=== PATIENT | female | born 1975 | race Two or more races ===

== ENCOUNTER → 2024-08-15 | Outpatient (CLI) | payer MEDICAID, SELFPAY ==
--- NOTE | 2024-08-15 16:00 | XR_ITS ---
Examination: Breast ultrasound complete, bilateral Date and time of exam: August 15, 2024 1610 hrs. Indications: Left breast cancer with lumpectomy 2002, left breast sonogram January 22, 2024 scar formation 12:00 position left breast 6 x 2 x 5 mm Technique: Real-time grayscale ultrasonographic imaging bilateral breasts, including all 4 quadrants as well as nipple retroareolar and axillary regions. Findings: Sonographic images right breast 11:00 cyst 4 x 4 millimeter 8:00 cyst 6 x 6 mm No solid nodules Sonographic images left breast 12:00 scar reformation 12 x 8 mm 11:00 probable scar formation 15 x 11 mm Impression: BI-RADS Category 3: Probably benign findings This patient should return in 3 months for repeat left breast sonography with the radiologist in attendance to document stability of these scar formation at 2 sites in the left breast
== END | disposition home or self-care (01) ==
LOC: CDIM 15:34
PROVIDERS: PCP Registered Nurse Community Health; Referring Provider Registered Nurse Community Health; Visit Provider Registered Nurse Community Health
DX: N60.01 Solitary cyst of right breast (principal); R92.8 Other abnormal and inconclusive findings on diagnostic imaging of breast
CPT/HCPCS: 76641

== ENCOUNTER → 2024-08-22 | Outpatient (CLI) | payer MEDICAID, SELFPAY ==
--- NOTE | 2024-08-22 15:12 | XR_ITS ---
Examination: Lumbar spine, 5 views Technique: Lumbar spine AP, lateral, coned lateral lower lumbar spine, bilateral obliques 5 views Exam date and time: August 22, 2024 1535 hours INDICATIONS: Low back pain beginning 2 months ago. FINDINGS: Moderate osteopenia Diffuse moderate facet arthropathy No lumbar fracture Mild disc narrowing at the lower 3 lumbar levels IMPRESSION: No lumbar fracture Mild disc narrowing at the lower 3 lumbar levels
== END | disposition home or self-care (01) ==
PROVIDERS: PCP Registered Nurse Community Health; Referring Provider Registered Nurse Community Health; Visit Provider Registered Nurse Community Health
DX: M48.061 Spinal stenosis, lumbar region without neurogenic claudication (principal)
CPT/HCPCS: 72110

== ENCOUNTER 2024-09-04 22:40 | Emergency (ER) | payer MEDICAID, SELFPAY ==
[2024-09-04 22:44] VITALS: BMI 23.1
[2024-09-04 22:45] VITALS: BP 136/88; PULSE 91; PULSE 95; RESP 15; RESP 19; TEMP 36.4; O2SAT 100; O2SAT 99; BMI 25.9
--- NOTE | 2024-09-04 22:46 | PD.EDAMS ---
Altered Mental Status RME/HPI General Chief Complaint: Altered Mental Status Stated Complaint: ALTERED Time Seen by Provider: 09/04/24 22:44 Source: EMS Arrival date/time: 09/04/24 22:40 Mode of arrival: EMS Limitations: altered mental status RME / HPI RME / HPI narrative: Dr. Farias?s Main ED Evaluation: A 49-year-old female was brought to the emergency department via ambulance for decreased responsiveness. According to EMS, the patient?s family reported that she had an argument with her , who then left the home. Upon his return, he found the patient to be less responsive. EMS noted that the patient was not speaking at the time of their arrival. No other associated symptoms or medical complaints were reported by EMS. 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 The patient underwent neurosurgery in [place], with the tumor reportedly being benign. She also has a history of chronic seizures managed with Keppra and a past appendectomy. Related Data Home Medications ?Medication ?Instructions ?Recorded ?Confirmed lamotrigine 150 mg tablet 150 mg PO BID 06/14/21 08/22/22 levetiracetam 1,000 mg tablet 1,000 mg PO BID 06/14/21 08/22/22 (Keppra) tamoxifen 20 mg tablet 20 mg PO DAILY 06/14/21 08/22/22 cholecalciferol (vitamin D3) 50 50 mcg PO QDAY 08/21/22 08/22/22 mcg (2,000 unit) capsule Allergies Allergy/AdvReac Type Severity Reaction Status Date / Time codeine Allergy Mild Palpitation Verified 08/22/22 08:18 s hydrocodone Allergy Mild Palpitation Verified 08/22/22 08:18 s Review of Systems Review of Systems ROS Unobtainable: unobtainable due to mental status ED Exam Narrative Physical exam: GENERAL APPEARANCE: AxO to person, not answering my questionnaire, generally well-appearing, no acute distress. HEENT: NC, AT. MMM. EOMI, clear conjunctiva, oropharynx clear. NECK: Supple without lymphadenopathy. No stiffness or restricted ROM. HEART: Normal rate and regular rhythm, normal S1/S1, no m/r/g LUNGS: CTAB, moving air well. No crackles or wheezes are heard. ABDOMEN: Soft, nontender, nondistended with good bowel sounds heard. BACK: No midline C/T/L spine pain or deformity, No CVAT, no obvious deformity. EXTREMITIES: Without cyanosis, clubbing or edema. MUSCULOSKELETAL: FROM of all major joints, no chest tenderness NEUROLOGICAL: Grossly nonfocal. Alert and oriented, moving all 4 extremities. CN not formally tested but appear grossly intact. Observed to ambulate with normal gait. Skin: Warm and dry without any rash. General Limitations: Present altered mental status Course Quality Measures none Orders Category Date Time Status Diazepam [Valium] Med 09/04/24 23:00 Discontinued 5 mg PO X1 ONE LORazepam [Ativan Inj] Med 09/04/24 22:45 Discontinued 2 mg IM X1 ONE Reevaluation(s) Reevaluation #1: Patient re-evaluated. She is alert, oriented x4, speaking in full sentences, GCS 15, back to baseline. Vitals WNL. Stable. No pain overall. Time: 23:15 Vital Signs Vital signs: Vital Signs Temperature 97.6 F 09/04/24 22:45 Pulse Rate 95 09/04/24 22:45 Respiratory Rate 19 09/04/24 22:45 Blood Pressure 136/88 H 09/04/24 22:45 Pulse Oximetry (%) 100 09/04/24 22:45 Oxygen Delivery Method Room Air 09/04/24 22:45 Altered Mental Status MDM Narrative MDM Narrative:: Scribe Attestation: I, Bre Almanza, am scribing for and in the presence of Dr. Farias. Provider Notation: Although this document has been carefully reviewed, there may still be some phonetic and other typographical errors. These errors are purely grammatical due to imperfections in the software program and should not be construed in any way to compromise the substance of the patient's medical care during this visit. Patient data External records reviewed:: [facility] previous records and EMS form Clinical information provided by:: EMS Social determinants that could affect healthcare access:: none Patient has the following chronic illnesses:: See PMH How is presenting disease/condition affected by chronic disease/condition?: uneffected by Evaluation data The following diagnostics were reviewed and interpreted by me:: other (specify) (n/a) Lab and/or radiology exams considered but not ordered:: n/a Interpretation Summary: See narrative Medications / Prescriptions Medications or Prescriptions considered but not ordered:: n/a Medication administrations:: Medication Administration History Discontinued Medications Diazepam (Diazepam 5 Mg Tablet) 5 mg PO X1 ONE Stop: 09/04/24 23:01 Last Admin: 09/04/24 23:19 Dose: 5 mg Documented By: FLO Lorazepam (Lorazepam 2 Mg/Ml Vial) 2 mg IM X1 ONE Stop: 09/04/24 22:46 Last Admin: 09/04/24 23:05 Dose: Not Given Documented By: AC Non-Admin Reason: Cancelled by Provider as above Consultations Consultation(s) initiated? (list below): No Diagnosis Differential diagnosis altered mental status: other ( Conversion disorder, panic disorder, anxiety, postictal seizure) Most likely diagnosis given after review of the tests above:: Patient has no emergent abnormalities in their studies and can be managed on an outpatient basis. Admission Indicated Admission indicated?: not indicated Admission Request Was there a request for admission?: No Disposition Plan Disposition Plan: Discharge Discharge Attestation Discharge Attestation: The patient and all family members were given an opportunity to ask questions and understood the discharge instructions. Discharge instructions specifically effects, indications for sooner follow up or return to the emergency department, and the expected course of current diagnosis. Patient condition: Stable Discharge Plan Plan Patient Disposition: HOME (Self Care) Prescriptions/Referrals Prescriptions/Med Rec: No Action lamotrigine 150 mg tablet 150 mg PO BID tamoxifen 20 mg tablet 20 mg PO DAILY levetiracetam [Keppra] 1,000 mg Tablet 1,000 mg PO BID cholecalciferol (vitamin D3) 50 mcg (2,000 unit) capsule 50 mcg PO QDAY Patient Comments: TAKE 1 CAPSULE BY MOUTH EVERY DAY Problem List Clinical Impression: Panic Patient/Caregiver Discharge Instructions Education Materials: ED Panic Attack Additional Instructions: Follow-up with your primary care doctor as needed. Feel free return to the emergency department sooner if symptoms worsen or if you notice any new, concerning issues. Print Language: Lithuanian Stand Alone Forms: [employer] Award Info., Patient Portal Info Letter
[2024-09-04 23:14] VITALS: BP 136/82; PULSE 87; RESP 19; O2SAT 98
[2024-09-04] MEDS: DIAZEPAM 5 MG TABLET PO (23:19)
== END 2024-09-04 23:40 | disposition home or self-care (01) ==
LOC: SERX 23:30
PROVIDERS: Emergency Provider Emergency Medicine; PCP Registered Nurse Community Health
DX: F41.0 Panic disorder [episodic paroxysmal anxiety] (principal)
CPT/HCPCS: 99282; A9270

== ENCOUNTER → 2024-09-07 | Outpatient (CLI) | payer MEDICAID, SELFPAY ==
--- NOTE | 2024-09-07 13:00 | XR_ITS ---
Examination: MRI brain without intravenous contrast. Date and time of exam: September 07, 2024 at 1326 hours Comparison October 22, 2017 INDICATIONS: History right frontal parafalcine enhancing tumor 6.6 x 4.8 x 3.7 cm on brain MRI October 22, 2017, diagnosis of epilepsy, history seizures after brain tumor removal 2018 headaches 3 weeks Technique: Multiple axial and sagittal images of the brain obtained. Siemens high-resolution 1.5 Radha short bore scanners utilized. Sagittal sections, T1-weighted, TR 500, TE 14, are performed. Axial sections proton-density and T2-weighted have been obtained. Inversion recovery axial images, TR 9, 260, TE 111, TI 2500. Diffusion weighted images, axial sections, TR 4800, TE 128, B value 1000 Axial sections, ADC map, TR 4800, TE 128 Findings: Enlargement of the sella turcica is not present. The optic chiasm and infundibular are not remarkable. Prepontine and interpeduncular cisterns are not enlarged. There is no localized enlargement of the medulla or opal. Fourth ventricle and cerebellar tonsils appear normal in position. No subacute area of hemorrhage density is seen. Mass in the cerebellopontine angle region is not evident. Globes symmetrical. Orbital musculature including medial lateral rectus muscles do not exhibit abnormality. Diffusion-weighted images demonstrate no focus of restricted diffusion. Increased white matter signal evident, extensive encephalomalacia in the right and to lesser extent left frontal lobes Mass effect upon the ventricular system is not identified. Impression: Postoperative changes cranial vault with encephalomalacia in the frontal lobes more severe right frontal lobe No acute infarct Recommend brain MRI follow-up post contrast given the patient's diagnosis and history of prior resection brain tumor
== END | disposition home or self-care (01) ==
LOC: SMRI 12:29
PROVIDERS: PCP Registered Nurse Community Health; Referring Provider Psychiatry & Neurology Neurology; Visit Provider Psychiatry & Neurology Neurology
DX: G40.909 Epilepsy, unspecified, not intractable, without status epilepticus (principal); G93.89 Other specified disorders of brain
CPT/HCPCS: 70551

== ENCOUNTER → 2024-10-31 | Outpatient (CLI) | payer MEDICAID, SELFPAY ==
--- NOTE | 2024-10-31 11:30 | XR_ITS ---
Examination: Breast ultrasound, unilateral, left complete Date and time of exam: October 31, 2024 1145 hours INDICATIONS: Probable scar formation 12:00 11:00 position left breast on sonogram August 15, 2024, personal history left breast cancer 2020 Technique: Real-time beckwith scale ultrasonographic imaging performed left breast including all 4 quadrants as well as nipple retroareolar and axillary region. Findings: 12:00 small area of scar formation 8 x 2 x 4 mm IMPRESSION: BI-RADS Category 2: Benign findings
== END | disposition home or self-care (01) ==
LOC: CDIM 11:31
PROVIDERS: PCP Registered Nurse Community Health; Referring Provider Registered Nurse Community Health; Visit Provider Registered Nurse Community Health
DX: C50.912 Malignant neoplasm of unspecified site of left female breast (principal)
CPT/HCPCS: 76641

== ENCOUNTER → 2025-06-26 | Outpatient (CLI) | payer MEDICAID, SELFPAY ==
--- NOTE | 2025-06-26 15:39 | XR_ITS ---
Examination: Breast ultrasound complete, bilateral Date and time of exam: June 26, 2025, 1612 hours, 12:00 scar formation 8 x 4 mm on ultrasound left breast October 31, 2024, personal history left breast cancer lumpectomy 2020 Technique: Real-time grayscale ultrasonographic imaging bilateral breasts, including all 4 quadrants as well as nipple retroareolar and axillary regions. Findings: Sonographic images right breast 8:00 cyst 6 x 6 mm 11:00 cyst 5 x 4 mm No solid nodules Sonographic images left breast 11:00 cyst versus fluid 9 x 5 mm at the area of scar from lumpectomy IMPRESSION: BI-RADS Category 2: Benign findings, including probable seroma at the scar site left breast 11:00
== END | disposition home or self-care (01) ==
LOC: CDIM 15:33
PROVIDERS: PCP Registered Nurse Community Health; Referring Provider Registered Nurse Community Health; Visit Provider Registered Nurse Community Health
DX: N64.89 Other specified disorders of breast (principal); C50.912 Malignant neoplasm of unspecified site of left female breast
CPT/HCPCS: 76641

== ENCOUNTER 2025-06-28 06:40 | Day surgery (SDC) | payer MEDICAID, SELFPAY ==
[2025-06-28] VITALS (12 sets, daily range): BP systolic 97–127; BP diastolic 53–71; PULSE 60–78; RESP 14–21; TEMP 36.3–36.6; O2SAT 98–100; BMI 24.0
[2025-06-28] MEDS: SODIUM CHLORIDE 0.9% 500 ML 500 ML 20 ML IV (07:26)
[2025-06-28] MEDS: MIDAZOLAM INJ 1 MG/ML VIAL 2 ML (ASD USE ONLY) 2 MG IVP (07:32)
[2025-06-28] MEDS: fentaNYL CIT INJ 50 mCg/ML AMP 2ML (ASD USE ONLY) IVP ×2 (07:32→07:46)
== END 2025-06-28 08:30 | disposition home or self-care (01) ==
PROVIDERS: PCP Registered Nurse Community Health; Referring Provider Surgery; Visit Provider Surgery
PROC: 0DBE8ZX Excision of Large Intestine, Via Natural or Artificial Opening Endoscopic, Diagnostic (ICD-10-PCS; CPT 45380; principal; 2025-06-28 07:30)
DX: D12.3 Benign neoplasm of transverse colon (principal); Z85.038 Personal history of other malignant neoplasm of large intestine; Z90.49 Acquired absence of other specified parts of digestive tract
CPT/HCPCS: 45385; A4217; A4649; J1200; J2250; J3010; J7999

== ENCOUNTER → 2025-07-05 | Outpatient (CLI) | payer MEDICAID, SELFPAY ==
--- NOTE | 2025-07-05 13:15 | XR_ITS ---
Examination: Screening digital mammography, bilateral Computer aided detection 3-D breast Tomosynthesis, bilateral Date and time of exam: July 05, 2025, 1332 hours, compared to mammograms dating to June 04, 2022 Indication: Screening Technique: Nonmagnified MLO, CC views of the breasts to been obtained, reconstructed from 3-D Tomosynthesis images. R2 computer aided detection program utilized for evaluation of suspicious masses and/or abnormal calcifications. 3-D Tomosynthesis images obtained. Findings: The breasts are heterogeneously dense, which may obscure small masses Stable scar formation left breast consistent with treated left breast cancer Benign calcifications. No interval suspicious masses Impression: BI-RADS category II: Benign Findings. Recommend 1 year follow-up mammogram.
== END | disposition home or self-care (01) ==
PROVIDERS: Referring Provider Registered Nurse Community Health; Visit Provider Registered Nurse Community Health
DX: Z12.31 Encounter for screening mammogram for malignant neoplasm of breast (principal); R92.323 Mammographic fibroglandular density, bilateral breasts; R92.1 Mammographic calcification found on diagnostic imaging of breast
CPT/HCPCS: 77063; 77067